=== PATIENT | male | born 1955 | race American Indian/Alaskan Native ===

== ENCOUNTER 2018-05-07 21:56 | Emergency (ER) | payer MEDICAID ==
--- NOTE | 2018-05-07 22:21 | Emergency Department Report ---
ED Neuro Deficit HPI - General Chief Complaint: Neuro Symptoms/Deficit Stated Complaint: POSS CVA Time Seen by Provider: 05/07/18 22:08 Source: EMS Mode of arrival: Stretcher Limitations: Altered Mental Status, Physical Limitation - History of Present Illness Initial Comments: Patient is 63 years old male previous history of CVA 5, hypertension and hyperlipidemia. Patient brought into the ER via EMS as a "stroke code. EMS stated that family stated that patient was last seen normal was 21:20. Patient was found to have aphasia and right upper and lower extremity weakness. The EMS approaching the ER patient started have focal seizure mainly to the left upper extremity. Patient is able to talk now and give more history. Patient stated that he was walking to the bathroom when he fell on his face and hit his head and he was pointing to a swelling in his right side of his forehead. Patient GCS is 15. Airway is intact. No other injuries. Location: speech, right face, right arm, right leg - Related Data Home Medications: Home Medications Medication Instructions Recorded Confirmed Last Taken Aspirin [Lo-Dose Aspirin EC] 81 mg PO DAILY 12/02/17 01/31/18 3 Days Ago ~11/29/17 Clopidogrel Bisulfate [Plavix] 75 mg PO DAILY 12/02/17 01/31/18 3 Days Ago ~11/29/17 Previous Rx's Medication Instructions Recorded Last Taken Type Ramipril 10 mg PO QHS #30 capsule 12/03/17 Unknown Rx Acetaminophen [Acetaminophen TAB] 325 mg PO Q4H PRN #30 tablet 02/03/18 Unknown Rx AtorvaSTATin [Lipitor] 40 mg PO QHS #30 tablet 02/03/18 Unknown Rx Famotidine [Pepcid] 20 mg PO DAILY #30 tablet 02/03/18 Unknown Rx Losartan [Cozaar] 100 mg PO QDAY #30 tablet 02/03/18 Unknown Rx Tamsulosin [Flomax] 0.4 mg PO QHS #30 02/03/18 3 Days Ago Rx ~11/29/17 amLODIPine [Norvasc] 10 mg PO QDAY #30 tablet 02/03/18 Unknown Rx Allergies/Adverse Reactions: Allergies Allergy/AdvReac Type Severity Reaction Status Date / Time No Known Allergies Allergy Verified 01/31/18 11:30 ED Review of Systems ROS: Stated complaint: POSS CVA Other details as noted in HPI Comment: All other systems reviewed and negative Constitutional: denies: chills, fever Respiratory: denies: cough, orthopnea Cardiovascular: denies: chest pain, palpitations Gastrointestinal: denies: abdominal pain, nausea, vomiting, diarrhea, constipation, hematemesis, melena Musculoskeletal: denies: back pain, joint swelling Neurological: headache, weakness. denies: numbness, paresthesias, confusion ED Past Medical Hx - Past Medical History Hx Hypertension: Yes Hx CVA: Yes (x5) Hx Congestive Heart Failure: No Hx Diabetes: No Hx Asthma: No Hx COPD: No Hx HIV: No - Surgical History Past Surgical History?: No - Social History Smoking Status: Never Smoker Substance Use Type: None - Medications Home Medications: Home Medications Medication Instructions Recorded Confirmed Last Taken Type Aspirin [Lo-Dose Aspirin EC] 81 mg PO DAILY 12/02/17 01/31/18 3 Days Ago History ~11/29/17 Clopidogrel Bisulfate [Plavix] 75 mg PO DAILY 12/02/17 01/31/18 3 Days Ago History ~11/29/17 Ramipril 10 mg PO QHS #30 capsule 12/03/17 01/31/18 Unknown Rx Acetaminophen [Acetaminophen TAB] 325 mg PO Q4H PRN #30 tablet 02/03/18 Unknown Rx AtorvaSTATin [Lipitor] 40 mg PO QHS #30 tablet 02/03/18 Unknown Rx Famotidine [Pepcid] 20 mg PO DAILY #30 tablet 02/03/18 Unknown Rx Losartan [Cozaar] 100 mg PO QDAY #30 tablet 02/03/18 Unknown Rx Tamsulosin [Flomax] 0.4 mg PO QHS #30 02/03/18 01/31/18 3 Days Ago Rx ~11/29/17 amLODIPine [Norvasc] 10 mg PO QDAY #30 tablet 02/03/18 Unknown Rx ED Neuro Physical Exam - General Limitations: Altered Mental Status, Physical Limitation General appearance: alert, in no apparent distress Suspected Stroke: Yes - Head Head exam: Present: other (mild swelling to the right side of his forehead) - Eye Eye exam: Present: normal appearance, PERRL - ENT ENT exam: Present: normal exam, normal orophraynx, mucous membranes moist - Neck Neck exam: Present: normal inspection, full ROM. Absent: tenderness, meningismus, lymphadenopathy, thyromegaly - Respiratory Respiratory exam: Present: normal lung sounds bilaterally. Absent: respiratory distress, wheezes, rales, rhonchi, chest wall tenderness, accessory muscle use, decreased breath sounds, prolonged expiratory - Cardiovascular Cardiovascular Exam: Present: regular rate, normal rhythm, normal heart sounds - GI/Abdominal GI/Abdominal exam: Present: soft, normal bowel sounds. Absent: distended, tenderness, guarding, rebound, rigid, organomegaly, mass, bruit, pulsatile mass , hernia - Extremities Exam Extremities exam: Present: normal inspection, full ROM, normal capillary refill - Back Exam Back exam: Present: normal inspection, full ROM. Absent: tenderness, CVA tenderness (R), CVA tenderness (L), muscle spasm - Neurological Exam Neurological exam: Present: alert, oriented X3 - NIHSS Assessment Interval: Baseline 1a. Level of Consciousness: alert 1b. LOC Questions: answers correctly 1c. LOC Commands: performs tasks correctly 2. Best Gaze: normal 3. Visual: no visual loss 4. Facial Palsy: minor paralysis 5b. Motor Arm Right: no drift 5a. Motor Arm Left: no drift 6a. Motor Leg Left: no drift 6b. Motor Leg Right: some gravity effort 7. Limb Ataxia: absent 8. Sensory: normal 9. Best Language: no aphasia 10. Dysarthria: normal 11. Extinction/Inattention: no abnormality Total Score: 3 Stroke Severity: Minor Stroke - Psychiatric Psychiatric exam: Present: normal affect, normal mood - Skin Skin exam: Present: warm, intact, normal color ED Course Vital Signs 05/07/18 05/07/18 22:06 22:10 Temperature 98.4 F 98.4 F Pulse Rate 94 H 79 Respiratory 21 18 Rate Blood Pressure 150/77 [Right] O2 Sat by Pulse 92 99 Oximetry - Lab Data Lab Results 05/07/18 Range/Units 22:06 POC Glucose 74 (70-105) - Radiology Data Radiology results: report reviewed Referring Physician: ISABELLA PALAFOX Patient Name: TUSHAR RODRIGUEZ Date of : 1955 Sex: Male Report Date: 2018-05-07 Report Status: Finalized Findings [facility] [address] [place] [address] Cat Scan Report Signed Patient: TUSHAR RODRIGUEZ MR#: [id number] : 1955 Acct:[id number] Age/Sex: 63 / M ADM Date: 05/07/18 Loc: ED Attending Dr: Ordering Physician: ISABELLA PALAFOX Date of Service: 05/07/18 Procedure(s): CT head/brain wo con Accession Number(s): [id number] cc: ISABELLA PALAFOX FINAL REPORT PROCEDURE: CT HEAD/BRAIN WO CON TECHNIQUE: Computerized tomography of the head was performed without contrast material. HISTORY: neuro deficits lt; 6hrs or sx present upon awakening COMPARISON: No prior studies are available for comparison. FINDINGS: Skull and scalp: Mild degree right frontal scalp swelling is noted.. Paranasal sinuses: An air-fluid level is noted in the right maxillary sinus.. Ventricles and subarachnoid spaces: Are prominent consistent with cerebral atrophy appropriate for patient's age. Cerebrum: An irregular hypodense lesion is noted in the left basal ganglia extending into coronary aorta measuring about 2.3 x 0.8 centimeters without mass effect. An old lacunar infarct is noted involving right thalamus.. There are 2 small irregular areas of hyperdensity in the left perimesencephalic cistern measuring 1.0 x 0.6 and 0.6 x 0.3 centimeters. Cerebellum and brainstem: No evidence of hemorrhage, acute infarction or mass. Vasculature: Atherosclerotic calcification is noted involving bilateral internal carotid and right vertebral arteries.. Comments: None. IMPRESSION: Small areas of a subarachnoid hemorrhage in the right perimesencephalic cistern. Old infarcts involving bilateral basal ganglia and left nava radiata as seen on the prior study. Acute right maxillary sinusitis. Mild degree right frontal scalp swelling. Note: These findings were conveyed to Dr. Palafox at 10.14pm EST on 05/07/2018 Transcribed By: [facility] [place] By: RAFA MATTHEWS Electronically Authenticated By: RAFA MATTHEWS Signed Date/Time: 05/07/182217 DD/ 17 TD/TT: 05/07/182217 - Medical Decision Making I discussed the patient was [facility] Doctor Sánchez from [facility]. The patient to be transferred to [facility]. Patient transferred in stable condition Critical Care Time: Yes Critical care time in (mins) excluding proc time.: 30 Critical care attestation.: If time is entered above; I have spent that time in minutes in the direct care of this critically ill patient, excluding procedure time. ED Disposition Clinical Impression: Subarachnoid hemorrhage following injury, Right sided weakness, Seizure, Head injury Disposition: DC/TX-70 ANOTHER TYPE HLTHCARE Is pt being admited?: No Condition: Stable Referrals: PRIMARY CARE, [Primary Care Provider] - 3-5 Days
[2018-05-07 22:28] LABS: Basophils % (Auto) 0.6 % (0.0-1.8); Eosinophils # (Auto) 0.2 K/mm3 (0.0-0.4); Eosinophils % (Auto) 2.2 % (0.0-4.3); Hematocrit 39.9 % (35.5-45.6); Hemoglobin 12.7 gm/dl (11.8-15.2); Lymphocytes # (Auto) 2.8 K/mm3 (1.2-5.4); Lymphocytes % (Auto) 33.8 % (13.4-35.0); Mean Corpuscular HGB Conc 32 % (32-34); Mean Corpuscular Hemoglobin 23 pg (28-32); Mean Corpuscular Volume 74 fl (84-94); Monocytes # (Auto) 0.5 K/mm3 (0.0-0.8); Monocytes % (Auto) 6.3 % (0.0-7.3); Platelet Count 262 K/mm3 (140-440); Red Blood Count 5.41 M/mm3 (3.65-5.03); Red Cell Distribution Width 16.2 % (13.2-15.2)
[2018-05-07 22:37] LABS: INR 0.97 (0.87-1.13)
[2018-05-07 22:38] LABS: BUN/Creatinine Ratio 21; Blood Urea Nitrogen 23 mg/dL (9-20); Calcium 9.6 mg/dL (8.4-10.2); Hemolysis Index 0; Partial Thromboplastin Time 31.6 Sec. (24.2-36.6)
[2018-05-07 23:37] VITALS: BP 139/82
== END 2018-05-07 23:38 | disposition other institution (70) ==
LOC: ED 21:56
DX: S06.6X0A Traumatic subarachnoid hemorrhage without loss of consciousness, initial encounter (principal); I10 Essential (primary) hypertension; E78.5 Hyperlipidemia, unspecified; Z79.82 Long term (current) use of aspirin; X58.XXXA Exposure to other specified factors, initial encounter; Y93.89 Activity, other specified; Y92.89 Other specified places as the place of occurrence of the external cause; Y99.8 Other external cause status
CPT/HCPCS: 36415; 51702; 70450; 80048; 82962; 84484; 85025; 85610; 85670; 85730; 93005; 93010